=== PATIENT | male | born 1955 | race Caucasian/White ===

== ENCOUNTER → 2021-04-28 10:16 | Outpatient (BNVA) | payer OTHER, SELFPAY | PROVIDERS: Visit Provider Physician Assistant Medical | DX: S63.501D Unspecified sprain of right wrist, subsequent encounter (principal); S43.401D Unspecified sprain of right shoulder joint, subsequent encounter; X50.1XXD Overexertion from prolonged static or awkward postures, subsequent encounter | CPT/HCPCS: 73030; 73110; 99203 ==

== ENCOUNTER → 2021-05-08 09:39 | Outpatient (BNVA) | payer OTHER, SELFPAY | PROVIDERS: Visit Provider Physician Assistant | DX: S43.491D Other sprain of right shoulder joint, subsequent encounter (principal); S63.591D Other specified sprain of right wrist, subsequent encounter; X58.XXXD Exposure to other specified factors, subsequent encounter | CPT/HCPCS: 99214 ==

== ENCOUNTER 2021-05-20 07:14 | Outpatient (REF) | payer OTHER, SELFPAY ==
--- NOTE | ~2021-05-20 | MR_ITS ---
EXAMINATION: MR WRIST WITHOUT CONTRAST, RIGHT CLINICAL INFORMATION: Right wrist numbness at the base of the thumb radiating into the thumb with paresthesias and pain. Twisting injury. Snuffbox tenderness. COMPARISON: Right wrist radiographs dated 04/28/2021. TECHNIQUE: MRI of the wrist was performed using routine sequences on a high-field scanner. FINDINGS: Evaluation somewhat limited secondary to patient motion. TRIANGULAR FIBROCARTILAGE: Intact. INTRINSIC LIGAMENTS: Heterogeneity of the scapholunate ligament with mild widening of the articulation, consistent with a sprain/partial tear. There may be a partial full-thickness defect along the scaphoid aspect of the ligament. TENDONS/MEDIAN NERVE: Intact. ARTICULAR CARTILAGE/BONE: Articular cartilage thinning with mild subchondral cystic change and small marginal osteophytes at the 1st carpometacarpal joint. No acute osseous injury. No fracture or dislocation. JOINT FLUID/SOFT TISSUES: No significant joint effusion. There is a lobulated ganglion cyst along the volar aspect of the scaphoid waist extending from the radial styloid to the radial aspect of the capitate. This measures approximately 2.4 x 0.6 x 0.6 cm. MR/MR wrist RT wo con IMPRESSION: 1. 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 Mild associated widening of the scapholunate articulation. 2. Ganglion cyst along the volar aspect of the scaphoid waist measuring up to 2.4 cm. This extends from the capitate to the radial styloid. 3. 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
== END 2021-05-20 07:15 | disposition home or self-care (01) ==
LOC: HO.MRI 07:14
PROVIDERS: Visit Provider Internal Medicine
DX: M25.531 Pain in right wrist (principal); M25.631 Stiffness of right wrist, not elsewhere classified
CPT/HCPCS: 73221

== ENCOUNTER → 2021-05-22 09:38 | Outpatient (BNVA) | payer OTHER, SELFPAY | PROVIDERS: Visit Provider Physician Assistant | DX: M25.511 Pain in right shoulder (principal); S41.011D Laceration without foreign body of right shoulder, subsequent encounter; X58.XXXD Exposure to other specified factors, subsequent encounter; M89.8X1 Other specified disorders of bone, shoulder | CPT/HCPCS: 99214 ==

== ENCOUNTER 2021-05-28 14:24 | Outpatient (REF) | payer OTHER, SELFPAY ==
--- NOTE | ~2021-05-28 | XR_ITS ---
EXAMINATION: XR WRIST, RIGHT CLINICAL INFORMATION: Pain in right wrist COMPARISON: Prior radiographs from 04/28/2021 TECHNIQUE: Right wrist, 4 views XR/XR wrist RT w scaphoid FINDINGS AND IMPRESSION: On the clenched fist view, there is borderline widening of the scapholunate joint space with slight asymmetric widening compared to the normal contralateral left scapholunate joint space. Otherwise, joints of the wrist are unremarkable. The carpal bones are intact. No fracture, subluxation or focal soft tissue swelling. No arthritic deformity.
== END 2021-05-28 14:25 | disposition home or self-care (01) ==
LOC: HO.XRAY 14:24
PROVIDERS: Visit Provider Orthopaedic Surgery
DX: M25.531 Pain in right wrist (principal); S63.8X1A Sprain of other part of right wrist and hand, initial encounter; X58.XXXA Exposure to other specified factors, initial encounter; Y93.9 Activity, unspecified; Y92.9 Unspecified place or not applicable; Y99.8 Other external cause status; X58.XXXD Exposure to other specified factors, subsequent encounter; Z88.0 Allergy status to penicillin
CPT/HCPCS: 20610; 73110; 99202; J1020; J1100

== ENCOUNTER 2021-07-10 08:35 | Outpatient (REF) | payer OTHER, SELFPAY ==
--- NOTE | ~2021-07-10 | MR_ITS ---
EXAMINATION: MR SHOULDER WITHOUT CONTRAST, RIGHT CLINICAL INFORMATION: Right shoulder pain and decreased range of motion. COMPARISON: Right shoulder radiographs dated 04/28/2021. TECHNIQUE: MRI of the shoulder without contrast was performed on a high-field scanner. FINDINGS: ROTATOR CUFF: Moderate supraspinatus and infraspinatus tendinosis. There is mild articular surface fraying of the distal infraspinatus tendon measuring approximately 0.9 cm in AP dimension. No full-thickness rotator cuff tendon tear. No muscle atrophy or fatty infiltration. BICEPS: Normal. CORACOACROMIAL ARCH: The undersurface of the acromion is minimally curved with no subacromial spur. [id number] acromioclavicular osteoarthritis with capsular edema and a joint effusion. Fluid and edema within the subacromial-subdeltoid bursa, consistent with bursitis. LABRUM/CAPSULE: Fluid extending through the undersurface of the superior and posterosuperior labrum, consistent with a nondisplaced undersurface tear. There is a paralabral cyst adjacent to the superior glenoid measuring up to 0.5 cm. Intact joint capsule. GLENOHUMERAL JOINT/MARROW: Mild inferior glenoid articular cartilage signal heterogeneity with tiny marginal osteophytes. MR/MR shoulder RT wo con IMPRESSION: 1. Moderate supraspinatus and infraspinatus tendinosis. Mild articular surface fraying at the distal infraspinatus tendon measuring 0.9 cm in AP dimension. No full-thickness rotator cuff tendon tear. 2. [id number] acromioclavicular osteoarthritis with capsular edema and an associated joint effusion. 3. Mild subacromial-subdeltoid bursitis. 4. Nondisplaced undersurface tear of the superior and posterosuperior labrum. Paralabral cyst adjacent to the superior glenoid measuring 0.5 cm. 5. Mild glenohumeral arthrosis.
== END 2021-07-10 08:36 | disposition home or self-care (01) ==
LOC: HO.MRI 08:35
PROVIDERS: Visit Provider Physician Assistant
DX: S46.001A Unspecified injury of muscle(s) and tendon(s) of the rotator cuff of right shoulder, initial encounter (principal)
CPT/HCPCS: 73221

== ENCOUNTER → 2021-07-16 08:22 | Outpatient (BNVA) | payer OTHER, SELFPAY | PROVIDERS: Visit Provider Physician Assistant | DX: S46.001D Unspecified injury of muscle(s) and tendon(s) of the rotator cuff of right shoulder, subsequent encounter (principal); S69.91XD Unspecified injury of right wrist, hand and finger(s), subsequent encounter | CPT/HCPCS: 99212 ==

== ENCOUNTER 2021-08-04 08:00 | Outpatient (RCR) | payer OTHER, SELFPAY ==
--- NOTE | 2021-09-10 08:36 | MHC.OT.DC ---
[address] [phone] F: [phone] Occupational Therapy Discharge Note Provider: Zane Butler PA-C Diagnosis: Dequervains tenosynovitis on right Date of Surgery: Date of Evaluation: 07/28/21 Date of Discharge: 09/10/21 Treatments to Date: 3 Cancellations to Date: 2 No Shows to Date: Discharge Status: Improved Function Independent with HEP Discharge Summary: Inc ROM , painfree AROM . Low pain with end range stretch Community Service Representative strength and functional dexterity WNL. Pt cx and has not rescheduled Electronically Signed By: Melony Seymour OT CHT CLT Reviewed/agree with student documentation: N/A Therapist: Please Sign and return to therapist, thank you for your referral.
== END 2021-09-10 08:38 | disposition home or self-care (01) ==
LOC: HO.OT 08:00
PROVIDERS: Visit Provider Physician Assistant
DX: M65.4 Radial styloid tenosynovitis [de Quervain] (principal)
CPT/HCPCS: 97033; 97110; 97140; 97166

== ENCOUNTER → 2021-08-27 11:21 | Outpatient (BNVA) | payer OTHER, SELFPAY | PROVIDERS: Visit Provider Physician Assistant | DX: M65.4 Radial styloid tenosynovitis [de Quervain] (principal); M25.531 Pain in right wrist; S46.001D Unspecified injury of muscle(s) and tendon(s) of the rotator cuff of right shoulder, subsequent encounter; M75.21 Bicipital tendinitis, right shoulder | CPT/HCPCS: 99212 ==

== ENCOUNTER → 2021-09-08 08:15 | Outpatient (BNVA) | payer OTHER, SELFPAY | PROVIDERS: Visit Provider Orthopaedic Surgery | DX: M75.101 Unspecified rotator cuff tear or rupture of right shoulder, not specified as traumatic (principal); S43.431A Superior glenoid labrum lesion of right shoulder, initial encounter; X58.XXXA Exposure to other specified factors, initial encounter; Y93.9 Activity, unspecified; Y92.9 Unspecified place or not applicable; Y99.8 Other external cause status; Z88.0 Allergy status to penicillin | CPT/HCPCS: 99212 ==

== ENCOUNTER → 2021-10-27 13:05 | Outpatient (BNVA) | payer OTHER, SELFPAY | PROVIDERS: Visit Provider Physician Assistant | DX: Z01.818 Encounter for other preprocedural examination (principal); S43.431A Superior glenoid labrum lesion of right shoulder, initial encounter; M75.101 Unspecified rotator cuff tear or rupture of right shoulder, not specified as traumatic | CPT/HCPCS: 99212 ==

== ENCOUNTER 2021-10-29 08:11 | Day surgery (SDC) | payer OTHER, SELFPAY ==
[2021-10-23 14:16] VITALS: BMI 27.3
--- NOTE | 2021-10-28 08:15 | HO.ANESPROP2 ---
Documented by User: Mckenna Mckenna NP 10/28/21 08:15 HPI - Anesthesia Eval Consult details Narrative: 66yo M for Right Shoulder Arthroscopy,poss rotator cuff repair,poss bicep tendonomy PMFSH Active Problems Active Problems: All Active Problems (Updated 09/08/21 @ 12:16 by Librado Bhatt MD) Rotator cuff tear, right (Acute) SLAP tear of shoulder (Acute) Biceps tendinitis of right shoulder (Acute) Injury of right rotator cuff (Acute) De Quervain's disease (radial styloid tenosynovitis) (Acute) Injury of right rotator cuff (Acute) Right wrist pain (Acute) Shoulder injury (Acute) Right wrist injury (Acute) Surgical History Surgical History H/O foot surgery Social History Social History Current occupational status: employed Current occupation: rt handed Meds Allergies Allergy/AdvReac Type Severity Reaction Status Date / Time Penicillins AdvReac Diarrhea Verified 09/08/21 08:21 Home Medications Medication Instructions Recorded Confirmed Last Taken Type simvastatin 40 mg tablet 40 mg PO DAILY 05/28/21 08/27/21 Unknown History Exam Exam Date and Time: October 28, 2021 0815 Height,Weight and Vital Signs: Height 5 ft 8 in Weight 81.647 kg Assessment and Plan Assessment Anesthesia Assessment: Chart Reviewed Documented by User: Tomy Brown MD 10/29/21 08:11 PMFSH Family History Family history of problems with anesthesia: No Surgical History Surgical History H/O foot surgery History of Problems with Anesthesia: No Social History Social History Current occupational status: employed Current occupation: rt handed Meds Allergies Allergy/AdvReac Type Severity Reaction Status Date / Time Penicillins AdvReac Diarrhea Verified 09/08/21 08:21 Home Medications Medication Instructions Recorded Confirmed Last Taken Type simvastatin 40 mg tablet 40 mg PO DAILY 05/28/21 08/27/21 Unknown History Exam Airway Mallampati Class: II TM Dist: >3cm Neck ROM: Full Assessment and Plan Final Anesthetic Review Family History of Problems with Anesthesia: No History of Problems with Anesthesia: No NPO: Yes ASA Class: II Final Preanesthetic Review: No Changes in Pt Med Stat, Meds/Allgs Chart Reviewed, Consent Obtained/Reviewed and Anes Risks/Benef Reviewed Patient Risk: Intermediate Procedure Risk: Intermediate Anesthetic Plan Anesthetic Plan: GA and Regional Block Disposition: Standard PACU
[2021-10-29] VITALS (9 sets, daily range): BP systolic 134–164; BP diastolic 74–95; PULSE 66–84; RESP 16–18; TEMP 36.1–36.8; O2SAT 93–97; BMI 28.8
--- NOTE | 2021-10-29 09:37 | MHC.SHP ---
Pre-Procedural Eval Section A Date of Service: 10/29/21 The patient is an INPATIENT: No Changes since office visit: Yes Patient answered all questions; No Cold of Flu in the past 2 weeks, No New Medical Problems and No Changes in Medication The History & Physical has been completed within 30 days and I have reviewed it.: Yes Section B Chief Complaint: rotator cuff tear Allergies: Allergies Allergy/AdvReac Type Severity Reaction Status Date / Time Penicillins AdvReac Diarrhea Verified 09/08/21 08:21 Plan I have reviewed the history and physical and performed a pertinent physical examination on my patient. No changes have occurred unless specified.
[2021-10-29] MEDS: Lactated Ringers 1,000 ML 100 ML IVCONT (10:24)
--- NOTE | 2021-10-29 11:47 | PM.OP ---
Brief Operative Note Date of Service: 10/29/21 Pre-op diagnosis: Internal derangement right shoulder Post-op diagnosis: other (1) SLAP tear 2) AC joint OA 3) subacromial impingement 4) intrasubstance RTC tear) Procedure: Biceps tenotomy and labral debridement. Distal clavicle excision SAD Surgeon: Librado Bhatt MD Anesthesia: GETA and regional Was an Environment Friendly Landscape Designer used for this Procedure?: Yes Environment Friendly Landscape Designer: Gillian Partida Estimated blood loss (mL): 20 IV fluids (mL): 800 Pathology: none sent Condition: stable Disposition: PACU
--- NOTE | 2021-11-14 16:13 | W.PM.OPN ---
Operative Note Operative Note Date of Service: 10/29/21 Narrative: Date of Service: 10/29/21 Pre-op diagnosis: Internal derangement right shoulder Post-op diagnosis: other (1) SLAP tear 2) AC joint OA 3) subacromial impingement 4) intrasubstance RTC tear) Procedure: Biceps tenotomy and labral debridement. Distal clavicle excision SAD Surgeon: Librado Bhatt MD Anesthesia: GETA and regional Was an Reject Opener And Filler used for this Procedure?: Yes Reject Opener And Filler: Gillian Partida Estimated blood loss (mL): 20 IV fluids (mL): 800 Pathology: none sent Condition: stable Disposition: PACU Procedure in detail: Patient was brought to the operating room and placed the the beach chair position. All bony prominences were well padded and the limb was prepped and draped in standard sterile fashion. A time out was called to identify proper site, proper procedure and proper surgeon. IV antibiotics per weight were administered. I began by making a posterolateral stab incision with a 15 blade. A blunt trochar was placed into the glenohumeral joint and I insufflated the joint with saline and a 30 degree arthroscope was placed. I established an outside- in anterior portal just distal to the biceps tendon. I then began my inspection of the glenohumeral joint. There was circumferential labral tearing and a SLAP tear. There was anterior interval synovitis. This subscapularis was intact. There were no cartilage changes to the glenohumeral joint. I performed a biceps tenotomy and debrided the anterior interval synovitis. Circumferential labral to me Brain was performed and the undersurface of the rotator cuff was examined. There was no undersurface rotator cuff tearing. I then entered the subacromial space where I established lateral portal. The rotator cuff was then examined and there were is no full-thickness rotator cuff tears. There were some scattered intrasubstance tearing that was not repairable. I then performed a 5 mm distal clavicle excision via my anterior portal and a 5 mm subacromial decompression. Once I was satisfied, final images were captured and I removed all instrumentation. Portals were closed with nylon. Patient was placed in a sling, extubated and brought to the recovery room in stable condition. There were no known complications.
== END 2021-10-29 14:22 | disposition home or self-care (01) ==
LOC: HO.SSS 08:12
PROVIDERS: Visit Provider Orthopaedic Surgery
PROC: (CPT 29805; principal; 2021-10-29 10:00)
DX: S46.011A Strain of muscle(s) and tendon(s) of the rotator cuff of right shoulder, initial encounter (principal); S43.431A Superior glenoid labrum lesion of right shoulder, initial encounter; M65.811 Other synovitis and tenosynovitis, right shoulder; M75.41 Impingement syndrome of right shoulder; M19.011 Primary osteoarthritis, right shoulder; X58.XXXA Exposure to other specified factors, initial encounter; Y93.9 Activity, unspecified; Y92.69 Other specified industrial and construction area as the place of occurrence of the external cause; Y99.8 Other external cause status; Z88.0 Allergy status to penicillin
CPT/HCPCS: 29824; 29826; 29822; J0171; J1100; J2250; J2405; J2795; J3010

== ENCOUNTER 2021-11-03 08:40 | Outpatient (RCR) | payer OTHER, SELFPAY | END 2022-01-23 08:09 | disposition home or self-care (01) | LOC: HO.PT 08:40 | PROVIDERS: Visit Provider Physician Assistant | DX: M75.101 Unspecified rotator cuff tear or rupture of right shoulder, not specified as traumatic (principal); M75.21 Bicipital tendinitis, right shoulder; S43.431D Superior glenoid labrum lesion of right shoulder, subsequent encounter ==

== ENCOUNTER → 2021-11-03 10:18 | Outpatient (BNVA) | payer OTHER, SELFPAY | PROVIDERS: Visit Provider Physician Assistant | DX: Z13.89 Encounter for screening for other disorder (principal) ==